=== PATIENT | female | born 1985 | race Caucasian/White ===

== ENCOUNTER 2016-04-03 12:40 | Observation (INO) | payer OTHER ==
[2016-04-03] MEDS ORDERED: Mag Sulf 500 ML IV SCH (16:17)
[2016-04-03] MEDS ORDERED: CALCIUM GLUC 10% 1 GM/10 ML VIAL IVP PRN (16:17)
[2016-04-03] MEDS ORDERED: MAGNESIUM SULF 4 GM/WATER 100 ML IV ONE (16:17)
[2016-04-03] MEDS ORDERED: BETAMETHASONE IM SYRINGE IM ONE (16:30)
[2016-04-03 16:45] LABS: % IMMATURE GRANULYOCYTES 0.8 % (0.0-1.1); ABSOLUTE IMMATURE GRANULOCYTES 0.08 10^3/uL (0.00-0.10); ADD DIFF? NO; ADD MORPH? NO; ADD SCAN? NO; ATYPICAL LYMPHOCYTE FLAG 10 (0-99); FRAGMENT RBC FLAG 0 (0-99); HEMATOCRIT 34.5 % (38.0-47.0); HEMOGLOBIN 11.3 g/dL (12.6-16.3); LEFT SHIFT FLG 0 (0-99); LIPEMIA HEMOLYSIS FLAG 80 (0-99); MEAN CELL HEMOGLOBIN 29.3 pg (27.9-34.1); MEAN CELL HEMOGLOBIN CONCENTR. 32.8 g/dL (32.4-36.7); MEAN CELL VOLUME 89.4 fL (81.5-99.8); MEAN PLATELET VOLUME 10.1 fL (8.7-11.7); PLATELET CLUMPS FLAG 0 (0-99); PLATELET COUNT 193 10^3/uL (150-400); RED BLOOD CELL COUNT 3.86 10^6/uL (4.18-5.33); RED CELL DISTRIBUTION WIDTH 14.4 % (11.5-15.2)
[2016-04-03 16:49] LABS: ALANINE AMINOTRANSFERASE 26 IU/L (9-52); ASPARTATE AMINOTRANSFERASE 16 IU/L (14-46); BILIRUBIN,TOTAL 0.4 mg/dL (0.1-1.4); BILIRUBIN-CONJUGATED 0.2 mg/dL (0.0-0.5); BILIRUBIN-UNCONJUGATED 0.2 mg/dL (0.0-1.1); CREATININE 0.9 mg/dL (0.6-1.0); GLOMERULAR FILTRATION RATE > 60; GLUCOSE 91 mg/dL (70-100); LACTATE DEHYDROGENASE 471 IU/L (313-618); URIC ACID 5.6 mg/dL (2.5-6.8)
--- NOTE | 2016-04-03 17:16 | US ---
April 03, [address] Azul, Thank you for allowing us to see your patient Rhiannon Long for growth evaluation. As you kn ow, she is a 31-year-old 6, para 0141. Her due date is 05/20/2016 based on LMP consistent with 12-week ultrasound. Her current gestational age based on this dating is 33 weeks 2 days. Her histo ry is significant for type 2 diabetes mellitus, maternal obesity, prior section, and history of preeclampsia in her prior . BP in our office today was measured at 165/106, 170/100. ULTRASOUND: Number of fetuses: 1 Placental location: posterior, no previa presentation: cephalic Heart Rate: 136 bpm Cervix: 3.8 cm viewed transabdominally Maximum vertical pocket: 5.9 cm Measurements: Biparietal diameter: 82 mm 32 weeks, 6 days Head circumference: 312 mm 35 weeks, 0 days Abdominal circumference: 295 mm 33 weeks, 4 days Femur length: 67 mm 34 weeks, 4 days Humerus length: 58 mm 33 weeks, 3 days Transcerebellar diameter: 45 mm 34 weeks, 6 days Average ultrasound age: 34 weeks, 0 days Estimated weight: 2296 gm weight percentile: 60 % ANATOMY anatomy was previously assessed. Today the following structures were visualized and appeared n ormal: lateral ventricle measuring 4.8 mm, 4-chamber heart view, left and right ventricular outflow tracts, stomach, bladder. IMPRESSION: 1. Intrauterine at 33 weeks, 2 days; NOEL of 05/20/2016. 2. growth is appropriate size for dates. 3. anatomy was previously assessed and today's ultrasound continues to provide reassurance of normal appearing anatomy. 4. Prior section. Placenta is posterior and there is no previa. She plans to have a repea t . 5. Type 2 diabetes mellitus. She reports good control. She is followed by Endocrinology. Her deta iled anatomy ultrasound and echocardiogram were reassuring, with some suboptimal views on echo with recommendation from Pediatric Cardiology to perform a echo to complete the evalu ation. She has started doing twice weekly NSTs. 6. History of preeclampsia. Rhiannon reports that she was delivered at 32 weeks due to severe preec lampsia. She delivered at [facility]. We recorded multiple severe-range blood pressure s in our office today, and these readings were confirmed on both arms with an appropriately sized cuf f. She is currently asymptomatic. She denies any history of hypertension outside of her o r in the beginning of this . Certainly she has multiple risk factors for developing preecla mpsia. She had a previous 24 hr urine done approximately 1 month ago that resulted with 456 mg of pr otein. At that time her BPs were still normal. Per our conversation, her urine dips in the office e denniser in showed trace protein. Her HELLP labs have been normal, most recently on 03/27/16 from results that I currently have available for review. She reports that last week she did have fady e severe-range BPs at her NSTs, but they decreased to mild-range when rechecked. Repeat 24 hr urine last week resulted with 528 mg protein. She states that her NST earlier today was reassuring and her BP at that time was not severe-range. RECOMMENDATIONS: As you and I have discussed, given the severe-range BPs that we have recorded today (in addition to o ther reported ones last week), along with the recent onset of proteinuria, I recommend that Rhiannon be admitted to the hospital for further evaluation and monitoring as I am concerned that she has like ly developed preeclampsia with severe features. If she has not already received a course of betameth asone within the last 2 weeks then she should receive a course now. The betamethasone will likely in crease her blood sugars and she may require an insulin drip for glycemic control. She should have re peat HELLP labs drawn, serial BPs monitored, and be started on magnesium sulfate for seizure prophyla xis. I have contacted the on-call physician for Labor and Delivery, Dr. Rachael Pinon, for assistance with this, as well as with subsequent transport to [facility] for further care. Rhiannon is aware that if she develops refractory severe-range BPs, lab abnormalities, or persistent symptoms of headache, visual changes, or right upper quadrant pain, that immediate delivery will be indicated. Thank you for allowing us the opportunity to evaluate your patient. Should you have any further ques tions or concerns please do not hesitate to contact me. Approximately 25 minutes were spent with the patient, of which 15 minutes were spent in [id number] consultation discussing her issues as noted above. Maryjane Spaulding M.D., Ph.D. Diagnosis Department of Obstetrics and Gynecology [facility]
[2016-04-03] MEDS ORDERED: hydrALAZINE 20 MG/ML VIAL IVP ONE ×2 (17:55→18:00)
[2016-04-03 18:25] LABS: HEMOGLOBIN A1C 6.7 % (4.0-6.0)
--- NOTE | 2016-04-03 18:42 | US ---
Limited Obstetric Ultrasound dated April 03, 2016 Indication: Follow-up growth. Type 2 diabetes. The estimated gestational age by LMP is 33 weeks 2 da ys yielding an EDC of May 20, 2016. Comparison: March 04, 2016 Findings: Number: 1 Presentation: Vertex Placental location: Posterior. No previa Cervix: Obscured HR: 135 bpm MVP: 5.9 cm Biometry: Biparietal diameter: 8.2 cm 32 weeks 6 days Head circumference: 31.2 cm 35 weeks 0 days Abdominal circumference: 29.5 cm 33 weeks 4 days Femur length: 6.7 cm 34 weeks 4 days Humerus length: 5.8 cm 33 weeks 3 days HC/AC: 1.06 (0.96 - 1.11) FL/BPD: 82% FL/AC: 23% Average ultrasound age: 34 weeks 0 days EDC based on today's average ultrasound age: May 15, 2016 Estimated weight is 2296 +/- 3 5 gms. The estimated weight is at the 60 % based on previo us dating. Impression: 1. Living wall . Size concordant with dates. The estimated gestational age by biometry is 34 weeks 0 days yielding an EDC of May 15, 2016. 2. Unremarkable anatomy. No anomalies detected. 3. Please see additional consultation by Dr. Maryjane Spaulding.
--- NOTE | 2016-04-03 19:52 | GHP ---
[f rep st] HISTORY AND PHYSICAL DATE OF ADMISSION: 04/03/2016. Subsequent immediate transport to the [facility]. This is on the obstetric service. HISTORY OF PRESENT ILLNESS: The patient is a 31-year-old, G6, P1, A4, with an estimated due date of 05/20/2016, based on a last menstrual period, consistent with a 12-week ultrasound. The patient is currently at 33 weeks and 2 days. The patient was sent up to labor and delivery from Dr. Spaulding, the maternal specialist, who did a high-risk growth scan today at [facility]. During that visit, the patient was noted to be severe range hypertensive, and was sent up to labor and delivery to receive magnesium sulfate stabilization, and then to be transported to the [facility]. The patient has a history significant for type 1 diabetes, maternal obesity, previous section, history of preeclampsia with her prior . Down at the ultrasound, the patient was noted to have blood pressures of 165 to 170/106. As the patient has been here on labor and delivery, she has had blood pressures ranging from 166 up to 190, with diastolics in the 80s to 106. After 4 doses of hydralazine, the blood pressure did improve down to 141/86; however, is receiving a 5th dose of hydralazine at this time due to pressure increasing to 187/86. While on labor and delivery, the patient has received a 4 g bolus of magnesium sulfate and is currently on 2 g an hour. The patient had initial [facility] labs performed which showed normal liver function tests with a uric acid of 5.6 and a creatinine of 0.9. The patient had a CBC showing H and H 11 and 34, and platelet count of 193,000. The patient has been monitored and the fetus is showing a category 1 tracing with baseline in the 130s with accelerations in great variability. No decelerations noted. Contraction monitor is not showing contractions. PAST MEDICAL HISTORY: Type 1 diabetes, gallstones, as well as kidney stones, morbid obesity. The patient's diabetes was diagnosed at age 13. The patient is followed by an well puller head in [place]. The patient has a glucose monitor continuously and has required high medication management. She has been on NovoLog 30-45 units with each meal. Tanjeo was initiated with the at about 20 weeks using 90 q.a.m. and 94 q.p.m. The patient has been on metformin, also initiated in the at 1000 mg b.i.d. For management with the diabetes, the patient also had a Lap-Band in 2012. PAST SURGICAL HISTORY: section in 2010, cholecystectomy in 2005, Lap- Band in June 2012. multiple D&Cs PAST OBSTETRIC HISTORY: First in March 2010, with severe preeclampsia diagnosed at 32 weeks, with delivery of a viable boy at 4 pounds 2 ounces at [facility]. The patient has also had 4 ABs in the 1st trimester with many managed with a D and C. ALLERGIES: The patient is allergic to Flagyl which causes hives. SOCIAL HISTORY: The patient denies any drug use, is a nonsmoker, and no alcohol use. The patient is , lives with her and her son. CURRENT MEDICATIONS: The diabetic medications as noted above. Currently, today , the patient had 30 units of NovoLog with her noonday meal. The patient did not have an afternoon snack. The patient has had 4 ounces of juice prior to transport. The patient also is taking vitamins, vitamin D, baby aspirin. CURRENT HISTORY: The patient has been followed with Dr. Azul in [place] since 1st trimester. labs have been obtained from Dr. Azul, are being sent down to [place] with the patient for transport. Maternal blood type A positive. The patient has had increasing proteinuria and has had 24-hour urine evaluations which on the last check showed greater than 500 mg. The patient has had [facility] laboratory checks that have been normal March 27 and March 31. Blood pressures have been managing in the normal range until presentation today. The patient reports that for the last couple of days she has had some blurry vision which actually improved today. She was also having a mild headache today which is improved at this time. Ultrasound today with [facility] reveals an appropriately grown fetus with estimated weight at 60th percentile , 2296 gm. Posterior placenta. normal fluid. PHYSICAL EXAMINATION: GENERAL: The patient is a morbidly obese female in no physical distress. Ht 5'3", wt 361 pounds. VITAL SIGNS: The patient's blood pressures currently on labor and delivery have been in the 140s to 150s, improved after the hydralazine up to the 180s to 190s/80s. Patient was afebrile with a pulse in the 90s and respirations 20. LUNGS: Clear to auscultation bilaterally; however, diminished in the bases. CARDIOVASCULAR: Regular rate and rhythm. PELVIC: not performed. EXT: mild edema monitoring shows category 1 tracing with a baseline in the 130s. Pearson catheter has been placed and the urine output is clear. ASSESSMENT: Intrauterine at 33 weeks and 2 days with severe preeclampsia. Type I DM on multiple meds with high insulin resistance. Previous section. Maternal morbid obesity. History of severe preeclampsia in her 1st with delivery. PLAN: The patient currently has severe range hypertension with recent proteinuria diagnosing severe preeclampsia. Blood pressures improved with IV hydralazine. The patient is on 2 g/hour of magnesium sulfate and is currently being transported to the [place] by helicopter for continued management. The patient had betamethasone at approximately 1700. [facility] labs are normal at this time. /[id number]/MODL MTDD
== END 2016-04-03 19:00 | disposition short-term general hospital (02) ==
LOC: FIMAGING 12:40 → FLD 15:39
PROVIDERS: ADMIT Obstetrics & Gynecology; ATTEND Obstetrics & Gynecology
DX: O14.13 Severe pre-eclampsia, third trimester (principal); O99.213 Obesity complicating pregnancy, third trimester; E66.01 Morbid (severe) obesity due to excess calories; Z3A.33 33 weeks gestation of pregnancy
CPT/HCPCS: 76816; G0378; 82947-QW; J0360; J0610; J0702; J3475